=== PATIENT | male | born 1990 | race Caucasian/White ===

== ENCOUNTER → 2016-08-20 | Outpatient (CLI) | payer BC, OTHER | LOC: CAT 07:11 | DX: R19.7 Diarrhea, unspecified (principal); R10.32 Left lower quadrant pain; N50.812 Left testicular pain ==

== ENCOUNTER 2016-10-17 08:07 | Emergency (ER) | payer BC, OTHER ==
[~2016-10-17] VITALS: Ht 177.8 cm; Wt 99.8 kg
[2016-10-17] MEDS ORDERED: VIBRAMYCIN 100100 MG PO (08:28)
== END 2016-10-17 08:45 | disposition home or self-care (01) ==
LOC: ER 08:07
DX: L55.1 Sunburn of second degree (principal); L03.114 Cellulitis of left upper limb; L03.113 Cellulitis of right upper limb; Z88.1 Allergy status to other antibiotic agents

== ENCOUNTER 2019-08-06 20:08 | Emergency (ER) | payer BC, OTHER ==
[~2019-08-06] VITALS: Ht 182.9 cm; Wt 94.8 kg
[~2019-08-06 20:08] MED LIST: VIBRAMYCIN 100100 MG PO
[2019-08-06 20:48] LABS: ABSOLUTE NEUTROPHILS 9.7 thou/uL (1.4-8.2); BASOPHILS 0.6 % (0.0-2.0); EOSINOPHILS 1.5 % (0.0-3.0); HEMATOCRIT 43.2 % (42.0-52.0); HEMOGLOBIN 14.4 gm/dL (14.0-18.0); LYMPHOCYTES 20.3 % (24.0-44.0); MCH 29.8 pg (26.0-34.0); MCHC 33.4 g/dL (28.0-37.0); MCV 89.1 fL (80.0-100.0); MONOCYTES 5.9 % (1.0-8.0); PLATELET COUNT 264 thou/uL (150-400); POLYS 71.7 % (36.0-66.0); RBC 4.85 mil/uL (4.50-6.00); RDW 13.8 % (10.5-14.5); WBC 13.6 thou/uL (4.0-11.0)
[2019-08-06 20:55] LABS: ANION GAP 10 mmol/L (7-16); BUN 20 mg/dL (7-18); CALCIUM 9.1 mg/dL (8.5-10.1); CHLORIDE 104 mmol/L (98-107); CO2 24 mmol/L (21-32); CREATININE 0.9 mg/dL (0.7-1.3); GLUCOSE 112 mg/dL (74-106); POTASSIUM 3.7 mmol/L (3.5-5.1); SODIUM 138 mmol/L (136-145)
[2019-08-06 20:56] LABS: URINE BILIRUBIN NEGATIVE (Negative); URINE BLOOD NEGATIVE (Negative); URINE CLARITY CLEAR; URINE COLOR YELLOW; URINE GLUCOSE-RANDOM* NEGATIVE (Negative); URINE KETONES NEGATIVE (Negative); URINE LEUKOCYTES-REFLEX NEGATIVE (Negative); URINE NITRITE-REFLEX NEGATIVE (Negative); URINE PROTEIN (DIPSTICK) NEGATIVE (Negative); URINE SPECIFIC GRAVITY 1.015 (1.005-1.035); URINE UROBILINOGEN 0.2 E.U./dl (0.2-1.0)
[2019-08-06 21:01] LABS: APTT 26.3 Seconds (24.5-32.8); PROTIME 10.4 Seconds (9.3-11.4)
[2019-08-06 21:04] LABS: AMP/METHAMP Negative (Negative); BARBITURATES Negative (Negative); BENZODIAZEPINES Negative (Negative); COCAINE Negative (Negative); METHADONE Negative (Negative); OPIATES Negative (Negative); PCP Negative (Negative)
[2019-08-06 21:04] LABS: TROPONIN-I <0.06 ng/mL (<0.06)
[2019-08-06 22:32] VITALS: BP 117/63
[2019-08-06] MEDS ORDERED: LITE COAT ASPI325 MG PO (23:18)
--- NOTE | 2019-08-10 12:24 | EKG ---
[facility] [place] [address] ELECTROCARDIOGRAM REPORT Name: TERESA PAZ Room #: [facility]#: [id number] Admission: 08/06/19 Attend Phys: Discharge: 08/06/19 Date of : 89 Report #: [id number] THIS REPORT FOR: cc: Manuel Harris MD, Kenneth MD Lundgren,Jas Thayer MD [facility] ~ THIS REPORT FOR: //name// [facility] ED Test Date: 2019-08-06 Test Time: 20:35:49 Pat Name: TERESA PAZ Department: Room: Gender: Resource Agent: : 1990 Requested By: Nani Osborne Order Number: [id number] MD: Jas Benitez Measurements Intervals [place] Rate: 59 P: 31 LA: 158 QRS: 75 QRSD: 104 T: 37 QT: 398 QTc: 395 Interpretive Statements Sinus rhythm Poor R wave progression ST elev, probable normal early repol pattern No previous ECG available for comparison Electronically Signed On 08-07-2019 7:57:01 CDT by Jas Benitez [email or web address] <ELECTRONICALLY SIGNED> By: Jas Benitez MD, [facility] 08/07/19 [id number] Jas Benitez MD, [facility] /EPI
== END 2019-08-06 23:17 | disposition home or self-care (01) ==
LOC: ER 20:08
PROVIDERS: Emergency Medicine Emergency Medical Services
DX: R29.818 Other symptoms and signs involving the nervous system (principal); F17.220 Nicotine dependence, chewing tobacco, uncomplicated; Z88.1 Allergy status to other antibiotic agents; Z79.899 Other long term (current) drug therapy

== ENCOUNTER → 2019-08-15 | Outpatient (CLI) | payer BC, OTHER ==
[~2019-08-15] MED LIST changes: +LITE COAT ASPI325 MG PO
== END ==
LOC: MRI 10:40
DX: M50.221 Other cervical disc displacement at C4-C5 level (principal); R20.2 Paresthesia of skin; H53.9 Unspecified visual disturbance

== ENCOUNTER 2021-01-08 19:08 | Emergency (ER) | payer BC, OTHER ==
[~2021-01-08] VITALS: Ht 182.9 cm; Wt 108.9 kg
[2021-01-08 21:40] VITALS: BP 154/90
== END 2021-01-08 21:40 | disposition home or self-care (01) ==
LOC: ER 19:08
DX: M79.671 Pain in right foot (principal); Z72.0 Tobacco use; Z88.1 Allergy status to other antibiotic agents